=== PATIENT | male | born 1960 | race Hispanic/Latino ===

== ENCOUNTER 2018-02-28 07:46 | Emergency (ER) | payer OTHER ==
[~2018-02-28] VITALS: Ht 180.3 cm; Wt 88.5 kg
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
[2018-02-28] MEDS ORDERED: IBUPROFEN800 M1 PO (10:28)
[2018-02-28] MEDS ORDERED: CYCLOBENZAPRINE10 M1 PO (10:28)
[2018-02-28 10:43] VITALS: BP 142/70
== END 2018-02-28 10:43 ==
LOC: ERH 07:46
DX: M25.561 Pain in right knee (principal); F17.210 Nicotine dependence, cigarettes, uncomplicated; F41.9 Anxiety disorder, unspecified
CPT/HCPCS: 72110; 73562-RT; J1885